=== PATIENT | male | born 2000 | race Caucasian/White ===

== ENCOUNTER 2022-07-10 08:00 | Outpatient (RCR) | payer BC, SELFPAY ==
--- NOTE | 2022-07-10 09:00 | BH.SGPN.GN ---
Behaviors/Verbalizations/Mental Status: [] Eye contact is good. Motor activity is appropriate. Appearance is casual. Speech is Appropriate. Mood is anxious. Affect is congruent. Thoughts are linear and logical. No evidence of psychosis. Reviewed daily check in sheet and no reports of suicidal ideations or intent. Client Response/Progress/Benefit: [] Pt participated when prompted. Attentive. Shared with the group that today was his first day in IOP and that he is here to work on his depression. Group provided support and offered feedback/advice for his first day in IOP level of care which was beneficial. Limited progress as this was pt's first day in IOP. Will continue in IOP to maintain safety, increase healthy coping, and improve functioning. Narrative Note: []
--- NOTE | 2022-07-10 10:10 | BH.SGPN.GN ---
Behaviors/Verbalizations/Mental Status: []Client alert and oriented, casually dressed and groomed. Eye contact good. Motor activity appropriate. Speech within normal limits. Affect congruent, mood content and anxious. Thoughts linear, logical, no signs of hallucinations or delusions Client Response/Progress/Benefit: []Client responded well to session AEB providing input when prompted, taking notes, and listening attentively to others. Client was engaged throughout group discussion defining fixed mindset and what it can look like. Group identified several aspects of fixed mindset which included; negative outlook, difficulties taking criticism, absolute thinking, and unrealistic expectations of self/others. Group discussed how fixed mindset affects mental health and why we use fixed thoughts. Client participated in experiential activity encouraging clients to find solutions to a seemingly impossible task. Client identified personal fixed thoughts in session which included ?I?m broken?, ?I won?t graduate?, and ?Setbacks are failures?. Client gained insight to how these fixed thoughts impact motivation, self-talk, and keep client stuck in unhealthy cycles. Client appeared to benefit from increased knowledge of fixed mindset and self-awareness of personal fixed thoughts. Will continue IOP treatment to reduce depression, increase healthy thought patterns, and to prevent decompensation. Narrative Note: []
--- NOTE | 2022-07-10 11:10 | BH.SGPN.GN ---
Behaviors/Verbalizations/Mental Status: []Pt alert and oriented, neatly dressed and groomed. Eye contact good. Motor activity appropriate. Speech within normal limits. Affect congruent, mood anxious. Thoughts linear, logical, no signs of hallucinations or delusions. Client Response/Progress/Benefit: []Pt engaged during activity and discussion AEB providing some input, connecting with peers, as well as taking notes throughout. Pt did well to engage as group worked on identifying characteristics and benefits of adopting a growth mindset. Worked with fellow participants in reframing the example fixed thoughts into growth mindset thoughts. Reframed personal fixed thought of ?I won?t graduate and setbacks are failures? with growth mindset thought of ?I am hard working and resilient.? Benefitted from discussing benefits of growth mindset and brainstorming strategies for prompting growth-mindset. Pt selected ?living in the hearn? as the coping skill pt wants to work on this week. First day of IOP tx. Pt will continue IOP tx to prevent decompensation, improve daily functioning, and maintain safety. ? Narrative Note: []
--- NOTE | 2022-07-10 14:37 | BH.COMM ---
Communication Note - Communication with Client Communication Note: Met with pt to complete initial paperwork. No significant changes since pre-admission screening. Completed [employer] Suicide Screening. High risk due to having suicidal ideations with a plan to overdose on sleeping pills this past Thursday. Pt bought the medications and had the intention to overdose, but pt shared he did not follow through with the plan because his friends called and pt spent time with them instead. Pt shared this improved his mood and reduced SI. Pt denies any active SI, plan, or intent as of today. Pt shared his family is aware and they are very close with pt. Pt's family is removing the weapons from the house. No history of previous attempts or self-harm. Contracts for safety. Consulted with Dr. Santana with plan to admit to IOP level of care with dx of MDD, recurrent, severe without psychosis F 33.2
--- NOTE | 2022-07-14 10:10 | BH.SGPN.GN ---
Behaviors/Verbalizations/Mental Status: []Pt alert and oriented, neatly dressed and groomed. Eye contact good. Motor activity appropriate. Speech within normal limits. Affect congruent, mood euthymic. Thoughts linear, logical, no signs of hallucinations or delusions. Client Response/Progress/Benefit: []Pt was an engaged participant AEB providing input, listening to others, and taking notes. Participated in interactive group discussion on internal and external barriers to mental health progress. Pt described current reality using a hiking metaphor. Pt shared feeling like he is ?in a valley between two mountains and I can see my supports, but can?t reach them.? Reported desired reality is still being on the hike, but ?I found a ladder and I can see past the darkness.? Pt?s strengths in current reality included close relationship with family and communication. Pt shared personal barriers to desired realty include: isolation, difficulty asking for help, and negative thinking. Benefited from increased awareness of current barriers to progress as well as current/desired realities. Pt to continue IOP to prevent decompensation, reduce SI, and gain healthy coping skills. ?? Narrative Note: []
--- NOTE | 2022-07-14 11:10 | BH.SGPN.GN ---
Behaviors/Verbalizations/Mental Status: []Pt alert and oriented, casually dressed and groomed. Eye contact fair. Motor activity appropriate. Speech within normal limits. Affect congruent, mood anxious. Thoughts linear, logical, no signs of hallucinations or delusions. Client Response/Progress/Benefit: []Pt engaged during activity, encouraging peers and contributed as group brainstormed ideas on how to cope with internal barriers that keep pts stuck from moving towards goals. Able to identify barriers to desired reality. Identified barriers to current reality to include: isolation, negative self-talk, and not asking for help. Pt wants to work on overcoming the barrier of isolation by scheduling hangouts with his family/friends. Benefited from group by identifying obstacles and solutions to desired reality.? Pt will continue IOP tx to improve daily functioning, increase healthy coping skills, and prevent decompensation.
--- NOTE | 2022-07-14 14:12 | BH.MTP_ITS ---
Master Treatment Plan - Patient Information Program Physician:: Dr. Rodriguez Primary Therapist:: Margarita Desouza, [facility] - Psychiatric Diagnoses Psychiatric Diagnoses:: Adjustment disorder with mixed anxiety and depressed mood Diagnosis Code(s):: F43.23 - Estimated LOS Estimated LOS (in weeks):: 6 Problem/Goal #1 - Problem/Goal #1 Stated Goal:: Client will decrease depressive symptoms, anhedonia, and suicidal thoughts. Description of Barriers: Potential barriers to treatment include: negative thi nking, mental health stigma, anxious thoughts, and not interested in taking any medications due to worry about future career options. Functional Impact: The patient is a 22-year-old single male who referred himself to the [facility] behavioral health IOP program for worsening depression since December 2021. The patient states that he may have started becoming mildly depressed during the COVID pandemic. 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 The patient's condition worsens and he stopped going to classes and to work in May secondary to feeling lonely and isolated. He dropped out of flight school now as he was behind but only has 3 classes to complete his training. The patient has had a few panic attacks but the last panic attack was on July 02, 2022. On June 28 the patient bought sleeping pills with the intent to kill himself by ingesting pills and sitting in his garage with car on. Later that night he went out with his friends and realized he did not want to commit suicide. Since moving home his depression and anxiety symptoms have improved. - Objectives Objective #1 Stated Objective: Client will learn and utilize 2-3 healthy coping strategies to manage depressive symptoms as shown by reduced DSM-5 cross-cutting symptom measure score. Interventions: Therapist will utilize CBT techniques to assist client with understanding the connection between thoughts, feelings and behaviors. Education will be provided on behavioral activation. Therapist will assist client in learning internal coping strategies to manage depressive symptoms, along with helping client identify triggers. Discharge Criteria: Client will have achieved this goal when reports consistent use of at least 2 healthy coping strategies and DSM 5 cross cutting measure shows decrease in depression at discharge. Target Date: 08/21/22 Review Date: 08/07/22 Objective #2 Stated Objective: Client will identify and replace 2-3 negative thinking patterns that reinforce depressive symptoms. Interventions: Group and individual therapy will assist client in developing an awareness of the cognitive messages that reinforce depressive thinking.? Group and individual therapy will also assist client in challenging negative thinking patterns.? Discharge Criteria: Client will have achieved this goal when can identify at least 2 negative thinking patterns and replace negative thinking with more positive, affirmative messages. Target Date: 08/21/22 Review Date: 08/07/22 Problem/Goal #2 - Problem/Goal #2 Stated Goal:: Client will increase emotional regulation and reduce intensity and duration of anxiety symptoms. Description of Barriers: Potential barriers to treatment include: negative thinking, mental health stigma, anxious thoughts, and not interested in taking any medications due to worry about future career options. Functional Impact: The patient is a 22-year-old single male who referred himself to the [facility] behavioral health IOP program for worsening depression since December 2021. The patient states that he may have started becoming mildly depressed during the COVID pandemic. 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 The patient's condition worsens and he stopped going to classes and to work in May secondary to feeling lonely and isolated. He dropped out of flight school now as he was behind but only has 3 classes to complete his training. The patient has had a few panic attacks but the last panic attack was on July 02, 2022. On June 28 the patient bought sleeping pills with the intent to kill himself by ingesting pills and sitting in his garage with car on. Later that night he went out with his friends and realized he did not want to commit suicide. Since moving home his depression and anxiety symptoms have improved. - Objectives Objective #1 Stated Objective: Client will learn and implement 2-3 calming skills to reduce overall anxiety and manage anxiety symptoms. Interventions: Therapist and group sessions will help client identify physiological warning signs of anxiety, increase awareness of thoughts that increase anxiety, and identify behaviors that reinforce anxious symptoms. Group and individual counseling will teach client calming skills to help manage anxious symptoms. Discharge Criteria: Client will have achieved this goal when can verbalize at l east 2 calming skills and reports skills successfully help reduce anxious symptoms. Target Date: 08/21/22 Review Date: 08/07/22 Objective #2 Stated Objective: Pt will decrease anxious symptoms AEB pt?s score on the DSM 5 cross-cutting measure improve pt?s daily functioning. Interventions: Through groups and individual therapy, pt will be provided education about anxiety?s impact on body and common physiological reaction to anxiety. Therapist will teach pt appropriate breathing techniques and build healthy coping skills to manage daily anxieties. Discharge Criteria: Pt will have met this goal when pt?s score on the DSM 5 cross cutting measure for anxiety has been decreased and per pt?s report daily functioning has improved. Target Date: 08/21/22 Review Date: 08/07/22
--- NOTE | 2022-07-14 14:28 | BH.PSA_ITS ---
Source of Information - Presenting Problems/Circumstances Problems, Referral Source, Mental Status, Client: The patient is a 22-year-old single male who referred himself to the [facility] behavioral health IOP program for worsening depression since December 2021. Patient had suicidal thoughts no June 28 with plan to take pills and turn on his car for carbon monoxide poisoning. Pt had opened up to his best friend about his suicidal thoughts and has moved back to his parents house from [place]. Pt's depressed and anxious symptoms led him to drop out of college classes and eventually withdraw from school. Past Psychiatric History - Treatment Hx Treatment History: No psych admits ever. No suicide attempts ever. He had 1 counseling session after his roommate in college by suicide several years ago in college. Patient has never taken any psychiatric medications. First hospitalization:: none Medication Trials:: No ECT Therapy:: No Age of first mental health symptoms: Reports some depressed symptoms in high school. Current providers for mental health treatment (counselor, psychiatrist, watch case polisher, etc.): No current providers besides [facility] IOP. Development & Family of Origin - Childhood Significant Childhood Events: Client describes positive upbringing with loving family. Client states family is extremely important to him and has fond memories of growing up. He denies any physical, verbal or sexual abuse growing up. - Family Who currently lives in your home?: Lives with his parents, sister, and grandmother. - Family History Family Hx of Psychiatric or AOD Problems: Paternal aunt has depression and anxiety. No other history in the family. No family hx of suicides. No drug or alcohol abuse in the family. Ethnicity - Culture Do you identify yourself with any particular cultural, ethnic background, or community?: No - Sexuality Sexual Orientation: Heterosexual Mental Status - Memory Recent Memory: Fair Remote Memory: Fair - Concentration Concentration: Fair - Eye Contact Eye Contact: Good - Speech Speech: Articulate - Thought Process Thought Process: Logical Insight: Fair Judgment: Fair Behavior: Calm - Orientation Orientation: Time, Person, Place, Situation - Appearance Appearance: Appropriate - Mood Mood: Anxious - Affect Affect: Alert, Appropriate/calm Suicide Assessment - Suicidal Ideation Have you ever felt like hurting yourself?: Yes Please explain:: On June 28 client had suicidal thoughts to kill self Were you using ETOH/drugs at the time?: No Suicidal Intentional Rating Scale (SIRS): Current suicidal thoughts/No plan/Contracts for safety Physician Notification: If Active suicidal thoughts/Will not contract for safety is checked, contact physician and document in the Physician Notification section below. Problem Checklist - Current Problem Areas Problem List: Depressed mood/sad, Anxiety, Additional psychosocial stressors Diagnoses - Diagnoses Diagnosis #1:: Adjustment disorder with mixed anxiety and depressed mood (F43.23) Interpretive Summary - Interpretive Summary Interpretive Summary: The patient is a 22-year-old single male who referred himself to the [facility] behavioral health IOP program for worsening depression since December 2021. The patient states that he may have started becoming mildly depressed during the COVID pandemic. 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 The patient's condition worsens and he stopped going to classes and to work in May secondary to feeling lonely and isolated. He dropped out of flight school now as he was behind but only has 3 classes to complete his training. The patient has had a few panic attacks but the last panic attack was on July 02, 2022. On June 28 the patient bought sleeping pills with the intent to kill himself by ingesting pills and sitting in his garage with car on. Later that night he went out with his friends and realized he did not want to commit suicide. On July 05 then he told his friend in [place] how he was feeling in the and then went home to [facility] on Thursday and told the rest of his family. They were very supportive of him and he is currently living at [place] with his parents and his grandmother. He sees his cousins frequently to and the support has helped him improve. His energy level is better now and he is exercising by lifting weights and hopes to start aerobic activity soon. The only panic attacks he had was when his parents were called and he was unable to tell them that he was not going to classes. Since moving home his depression and anxiety symptoms have improved. Treatment Plan Recommendations - Recommendations Guidelines: Special needs identified to be included in the development of an individualized treatment plan regarding past psychiatric history and treatment, developmental events, family relationships/events/culture, past and/or current educational, occupational, social, and residential experience, and legal status. Recommendations:: The patient will start the IOP program in behavioral health at [facility] as the structure, support, education and group therapy will hopefully prevent worsening of the patient's symptoms.
--- NOTE | 2022-07-14 14:35 | BH.MDN_ITS ---
Multi-Disciplinary Note - Note 45-min Individual Time Started:: 09:00 Date: 07/14/22 Purpose of session/treatment goals addressed:: Purpose of session was to assess client's current symptoms, stressors, functioning, and gather additional background information. Additional focus was establishing treatment goals for IOP. Eye Contact:: Good Motor Activity:: Appropriate Appearance:: Casual Speech:: Appropriate Mood:: Anxious Affect:: Congruent Thoughts:: Linear, Logical, No evidence of hallucinations/delusions noted Staff Interventions:: psychoeducation on: - cognitive triangle and behavior activation, CBT techniques, rapport building, strengths perspective, treatment planning, goal setting - set short term goal for the week Client Response:: Client reported he moved to [place] about 5 years ago to go to [employer] school through [employer]. Client reported he lives on campus until [facility] then moved in with his sister. Client stated he started to struggle within the last year once his friends began to graduate from [employer] and he had additional time left. Client reported he began feeling more isolated and lonelier due to having limited support in the area. Client reported his depressed symptoms worsened when his sister moved from [place] to [place] in December 2021. Client stated at this point he only had 1 best friend left in the [place] area since the other friends moved since graduation. Client reported he started to isolate and feel more depressed throughout those months. Client shared his symptoms worsened the last 2 months with having significant depressed thought patterns, low motivation, difficulty concentrating, loss of interest in things he used to like to do, decreased socialization, and difficulty sleeping. Client reported he stopped going to his classes and worked for about a month. Client shared he was not communicating to supports that he was struggling with his mental health which increased his anxiety significantly. Client stated he is very close to his family and so every time he talked to his family, he felt like he was hiding it important part about his life. They client stated about 2 weeks ago he bought some sleeping pills with plan and intent to take the second pills while in the garage with his car running to kill himself. Client reported he did not follow through with that plan because on the day he was going to do it his best friend reached out to see if they wanted to hang out. Client stated within a few days he did open up to his best friend about his increased depression and suicidal thoughts. Client stated at this time he had already dropped out of flight class but still did not share this with his family. Client reported last weekend he informed his parents about his mental health and suicidal thoughts and decided to drop out of school and moved back home. Client stated since being home for the last week and a half his mood has improved and he has not had any suicidal thoughts. Client reported being surrounded by his family and friends has been extremely helpful. Client shared he has had no previous therapy but did struggle with mental health while in high school due to some relationships and sport issues. Client stated he did have passive thoughts of while in high school but stated this most recent bout of depression is the worst he has ever had. 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 Client stated in the last 2 months he was feeling extremely hopeless and did not think that he can get through it. Client seemed to connect with psychoeducation about cognitive triangle and behavioral activation. Client cannot tell in the last few months is thought patterns and behavior was reinforced in depressed feelings and feelings of hopelessness. Client reported while in IOP he would like to learn how to better navigate depressed symptoms to prevent himself from getting to suicidal thoughts. Client stated he does like to learn skills to manage anxiety. Client worked with therapist to identify activities that he can engage in that have improved his mood and activities that can negatively impact his mood. Client reported his goal for the week is to join a local gym and work at least 1 time. Client reported working out has been a helpful coping skill to manage his mood. Risks/Concerns:: Client currently denies suicidal thoughts, plan or intention to date. Future focused. Progress Toward Goals/Plan:: Progress noted with client reporting improved mood since moving back in with his family about 1 and 1/2 weeks ago. Client was feeling extremely isolated and lonely when living in a condo in [place] by himself. Client reports his relationships with family is very important so has found it helpful to be back in a loving and supportive area. Client continues to report occasional negative thought patterns, down mood, and anxious thoughts in the last week. Plan is for client to continue IOP to increase healthy coping skills, improve distress tolerance, and prevent decompensation. Time Stopped:: 09:50
--- NOTE | 2022-07-16 09:35 | BH.NA_ITS ---
Physical Data - Vital Signs Pulse Rate: 68 Blood Pressure: 137/74 - Height/Weight Height: 1.85 m Weight:: 79.379 kg Weight in Pounds: 175.0 lbs Nutritional History - Appetite Nutritional Instructions:: If client shows signs of a swallowing problem, weight change of 10 pounds or more in the last month, or is on a diabetic diet, the physician will review and request a dietitian consult, as appropriate. All unintentional weight loss will be referred to the physician for decision on need for dietitian consult. Describe your appetite:: Good - Denies change in appetite or recent weight change. Functional Assessment - Activities Motor Activity:: Functional Sensory/Communication Assess - Vision Problems Do you have any vision problems?: None - Communication Problems Do you have difficulty understanding what people are saying?: No Medical Problems/History - Pain Assessment Do you have acute or chronic pain?: No Surgical History - Surgical History Have you had any surgeries? If so, list type and date:: Yes - wisdom teeth removal Substance Abuse - Substance Abuse Please describe substance abuse in the last 30 days:: Client reports some social alcohol use. Client denies tobacco or substance use. Client denies regular caffeine use. Mental Status Summary - Mental Status Significant Findings/Observations on Appearance and Mood:: Client is alert and oriented x 4. Client is casually groomed with good hygiene. Client is cooperative with assessment. Client makes good eye contact. Client's voice has normal rate and volume. Client has appropriate affect. Client makes logical associations. Client has normal processing. Client denies delusions/hallucinations. Client denies current SI or plan/intent. Suicide Assessment - Suicidal Ideation Are you currently or have you been suicidal in the past?: Yes - denies current SI Suicidal Intentional Rating Scale (SIRS): Suicidal thoughts (past) Physician Notification: If Active suicidal thoughts/Will not contract for safety is checked, contact physician and document in the Physician Notification section below. Assault History/Potential Past Psychiatric History - MH Treatment Hx Past Psychiatric Medications:: None. Age of first mental health symptoms: Client states he had some situational depression in high school, but recently started feeling depressed in the last 6 months. Client has not been on medication for mental health and has never had therapy before. Describe (age, circumstance, etc) any past hospitalizations: None, but client did have a suicidal plan in early June of this year and bought sleeping pills and was planning to overdose in his car in the garage with it running. Client talked with friends/family and did not attempt his plan. Fall Risk Assessment - Age Age: Less than 60 - Mental Status Mental Status: Willing & able to ask for assistance when needed - Physical Status Physical Status: No problems - Impairments Impairments: None - Elimination Elimination: Continent AND independent - Gait or Balance Gait or Balance: Walks independently - Hx of Falls History of falls in the past 6 months: No known history - Medications/Substances Medications/substances used within the past 24 hours or ordered to administer: None of the medications/substances list above - Total Score Total Points:: 0 RN Summary of Impressions - Impressions Recommendations: Include psychiatric and medical issues, treatment planning recommendations, and discharge planning needs. Impressions: Psychiatric Issues: 1. Adjustment disorder with mixed anxiety and depressed mood (F43.23). 2. Primary support and school issues - Level of Care How do the client's current symptoms and functional deficits support need for this level of care?: Client was self-referred to IOP after worsening depression since December 2021. His roommate, his sister, moved out of their apartment and the client felt lonely, and client also felt like he wasn't progressing in life like he should. 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 Client had a plan in early June to overdose on sleeping pills and sit in his running car in the garage, but he talked to friends/family and did not carry out plan. Client moved home from [place] this past weekend and he states his family is very supportive since he has finally opened up to them about his struggles with depression symptoms. Client states he did have a panic attack about 2 weeks ago. Client does endorse some crying episodes in the last few weeks. Client denies SI since his suicidal plan earlier this month. IOP will promote gains and prevent further decompensation while providing social support and skills training.
[2022-07-16 09:57] VITALS: BP 137/74; PULSE 68
--- NOTE | 2022-07-16 10:15 | BH.SGPN.GN ---
Behaviors/Verbalizations/Mental Status: [] Eye contact is good. Motor activity is appropriate. Appearance is casual. Speech is Appropriate. Mood is anxious. Affect is congruent. Thoughts are linear and logical. No evidence of psychosis. Client Response/Progress/Benefit: [] Limited participation. This group was very heavy on psychoeducation and pt was attentive AEB by note-taking, providing input when appropriate, and asking questions. Attentive during interactive discussion in which peers attempted to define and give examples of automatic negative thoughts and cognitive distortions. Therapist presented and reviewed ten common cognitive distortions (All or Nothing thinking, mental filter, jumping to conclusions, emotional reasoning, labeling, overgeneralization, disqualifying the positives, catastrophizing, shoulds, and personalization). Benefited from increased understanding of cognitive distortions and how they impact automatic negative thoughts. Will continue in IOP to maintain safety, increase healthy coping, and improve functioing. Narrative Note: []
--- NOTE | 2022-07-16 11:10 | BH.SGPN.GN ---
Behaviors/Verbalizations/Mental Status: []Eye contact is fair to good. Motor activity is appropriate. Appearance is casual. Speech is WNL. Mood is anxious. Affect is congruent. Thoughts are linear and logical. No evidence of psychosis. Client Response/Progress/Benefit: []Pt engaged participant AEB providing input during small group discussion and engaging in activity. Activity involved working with peers to answer questions related to psychoeducation on cognitive distortions and practicing reframing distorted thoughts. Pt collaborated with the group to determine the answers. Identified cognitive distortion struggles with the most as disqualifying the positives. Stated he has a difficult time with accepting compliments and recognizing his daily wins. Benefited from rehearsing ways to challenge/reframe cognitive distortions and by gaining increased insight into examples/definitions of 10 most common cognitive distortions. Will continue in IOP to increase healthy coping skills, increase confidence, and prevent decompensation.
--- NOTE | 2022-07-16 12:58 | BH.PSY.EVA_ITS ---
Psychiatric Evaluation Initial Evaluation Initial Evaluation: History of Present Illness: [] The patient is a 22-year-old single male who referred himself to the [facility] behavioral health IOP program for worsening depression since December 2021. The patient has no prior history of psychiatric treatment but was depressed once in high school. The patient states that he may have started becoming mildly depressed during the COVID pandemic. 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 He was very close to his sister and began feeling lonely and his depression worsened. He is very family oriented and visited his family in [place] on weekends but remains somewhat lonely. For primary support he has family, his sister and his best friend and his best friend's aleksandra who lives in [place]. The patient's condition worsens and he stopped going to classes and to work in May secondary to feeling lonely and isolated. He dropped out of flight school now as he was behind but only has 3 classes to complete his training. The patient has had a few panic attacks but the last panic attack was on July 02, 2022. 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 He admits to passive thoughts of but none since July 04, 2022. He denies any suicidal ideation since July 04, 2022. On June 28 the patient but sleeping pills with the intent to kill himself (melatonin) by ingesting carbon monoxide in his car in his garage. Later that night he went out with his friends and realized he did not want to commit suicide. On July 05 then he told his friend in [place] how he was feeling in the and then went home to [place] on Thursday and told the rest of his family. They were very supportive of him and he is currently living at home [place] with his parents and his grandmother. He sees his cousins frequently to and the support has helped him improve. His energy level is better now and he is exercising by lifting weights and hopes to start aerobic activity soon. The only panic attacks he had was when his parents were called and he was unable to tell them that he was not going to classes. The patient states that he had a roommate commit suicide in his sophomore year of college by jumping off a parking garage and this was upsetting to the patient. He saw a counselor after this but states that he felt he was able to handle it. He has mild anhedonia and some initial insomnia and also wakes up during the night but gets back to sl eep and gets about 7 hours of sleep at night now. He denies any PTSD from his roommate suicide or anything else. He denies hopelessness now since he is home with his family. He denies thoughts of self-harm, passive thoughts of currently, suicidal ideation, homicidal ideation, caffeine use, eating disorder, history of self-harm, seizure or head trauma. He also denies hallucinations or delusions. Current Psychiatric Medications: [] None. Past Psychiatric History: [] No psych admits ever. No suicide attempts ever. He had 1 counseling session after fight after his roommate committed suicide several years ago in college. Patient has never taken any psychiatric medications. He was first depressed in high school but this resolved without medication. Substance Use History: [] Patient denies cigarettes, vaping or any illicit drug use. He used to drink occasional alcohol 1 socializing but has not drank any alcohol since his depression symptoms got worse several months ago. He has also not attended the flight classes when his depression worsened. Allergies: [] No known allergies Medications: [] None Past Medical History: [] [place] teeth in 2016. No other illnesses or surgeries. Family Psychiatric History: [] Father is 56 years old mother is 52 years old. Paternal aunt has depression and anxiety. No other history in the family. No completed suicides. No drug or alcohol abuse in the family. Personal/Social History: [] Patient was born and raised in [place] and describes his childhood as very good. He grew up in a big, loving Yazidi family. He denies any physical, verbal or sexual abuse growing up. He was working at [employer] while in college but quit that when he came home to [place] several weeks ago. He had a high school girlfriend that was on and off for 3 years but no other serious relationships. No children. Graduated high school and was a student at [employer] with only 3 classes left when he dropped out a few weeks ago. He plans to possibly return when he feels better. He is very close to his family and his cousins. Legal History: [] No arrests. Has new autos delivery driver's license. No DUIs. Review of Systems: [] Review of systems negative except as noted in present illness. Vital Signs: [] Vital signs and exam are reviewed in the records and in the nurses notes and updated and the patient is deemed medically able to participate in the IOP program. Mental Status Examination: [] Patient is a 22-year-old male who appears normal for stated age and is casually dressed and groomed with good hygiene. He has ashes on his forehead as he is Yazidi and this is Giovanni Thursday. He is ambulatory with a normal gait and has no psychomotor agitation or retardation. He is cooperative and pleasant during the interview. Eye contact is good. Mood is depressed. Affect is constricted. Speech is normal rate and rhythm and fluent with no pressure. Thought process is organized and goal-directed. Thought content: The patient which is wishes to get counseling to help with his depression and anxiety. There is no evidence of passive thoughts of , suicidal ideation, homicidal ideation, hallucinations, delusions or plan for suicide. Reality testing is intact. Intelligence is above average. Impulsivity is low. Judgment is intact. Insight is good. Diagnoses: [] 1. Adjustment disorder with mixed anxiety and depressed mood (F43.23) 2. Primary support and school issues Plan: [] The patient will start the IOP program in behavioral health at [facility] as the structure, support, education and group therapy will hopefully prevent worsening of the patient's symptoms. He felt safe during the interview and if it anytime he does not feel safe he will let us know or go to the emergency room. The patient is offered the option of an antianxiety and antidepressant agent but he refuses medication at this time. He wishes to try therapy and continue exercising and adds and plans to add aerobic exercise soon as when he was running in high school he felt that this was beneficial. Discussion was had about correcting cognitive distortions and negative thinking when 1 is depressed. Counseling is recommended for this. I will see the patient in follow-up while he is in the IOP program.
--- NOTE | 2022-07-16 13:10 | BH.DR.ITP ---
Initial Treatment Plan Patient Information Visit Information: ADMISSION DATE: EXPECTED LOS: 4-6 weeks Problems/Symptoms Problem #1:: Depression Symptom:: Sadness, biological disruption of sleep, recent passive thoughts of and suicidal ideation, fatigue, decreased concentration, low energy, anhedonia Problem #2:: Anxiety Symptom:: Worry, rumination, panic attack
--- NOTE | 2022-07-17 09:05 | BH.SGPN.GN ---
Behaviors/Verbalizations/Mental Status: []Eye contact good, casually dressed, motor activity appropriate, speech normal rate and tone, mood euthymic and anxious, congruent affect, thoughts linear and intact, no evidence of delusions or hallucinations. Reviewed pt's symptom tracker, pt denies suicidal ideation, plan, or intent as of this date. Future oriented. Client Response/Progress/Benefit: []Pt responded well to session, attentive and willing to process with group. 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 Pt did well to identify wins, which included taking time to prioritize self-care and get back into regularly exercising. Discussed that doing so has helped with improving his overall mood as well. 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 Identified that was anxiety provoking but ultimately an empowering and beneficial experience as her boss was receptive and open to scheduling a time to meet. Progress noted in increased use of behavior activation skills and thought challenging. Recommended continued IOP tx to continue to improve consistent use of healthy skills and self-care, continue to gain insight into his mental health, as well as prevent decompensation. Narrative Note: []
--- NOTE | 2022-07-17 10:10 | BH.SGPN.GN ---
Behaviors/Verbalizations/Mental Status: [] Eye contact is good. Motor activity is appropriate. Appearance is casual. Speech is Appropriate. Mood is anxious. Affect is congruent. Thoughts are linear and logical. No evidence of psychosis. Client Response/Progress/Benefit: [] Pt was an active participant in group discussion and experiential activity. Attentive during psychoeducation on difference between internal and external coping skills. Therapist discussed possible causes to developing and maintain unhealthy coping skills which can impact mental health. Pt participated in interactive discussion identifying common unhealthy which included; overworking, self-harming, substance use, over-sleeping, over-eating, excessive exercise, social media scrolling, isolation, etc. Able to make connections between experiential activity (folder towers) and importance of having a solid base of internal and external coping skills. Benefited from increased awareness of internal and external coping skills and identifying unhealthy coping skills. Will continue in IOP to maintain safety, increase healthy coping, and improve functioning. Narrative Note: []
--- NOTE | 2022-07-17 11:15 | BH.SGPN.GN ---
Behaviors/Verbalizations/Mental Status: []Pt alert and oriented, neatly dressed and groomed. Eye contact good. Motor activity appropriate. Speech within normal limits. Affect congruent, mood euthymic. Thoughts linear, logical, no signs of hallucinations or delusions. Client Response/Progress/Benefit: []Pt responded well to session, taking notes and contributing. Group discussed the different categories of coping skills which included distraction, emotional release, grounding, self-love, and thought challenging.? Pt participated in creating a coping skills ?menu? from the five categories of coping skills. Pt's coping skill menu included: star-gazing, communicating needs with family and friends, exercising, and paying attention to his distorted thought patterns. Pt reported some of these skills are new and others are skills pt wants to use more often. Appeared to benefit from increasing repertoire of healthy coping skills. Will continue tx to gain healthy coping skills, improve daily functioning, and reduce negative self-talk. ? Narrative Note: []
--- NOTE | 2022-07-21 09:05 | BH.SGPN.GN ---
Behaviors/Verbalizations/Mental Status: [] Eye contact is good. Motor activity is appropriate. Appearance is casual. Speech is Appropriate. Mood is euthymic. Affect is full. Thoughts are linear and logical. No evidence of psychosis. Reviewed daily check in sheet and no reports of suicidal ideations or intent. Client Response/Progress/Benefit: [] Pt participated at times during the group session. Attentive. Mental health win was celebrating his b-day with her family/friends. He is also continuing to follow-through with consistent exercise which he stopped during her depressive episode for several months. He shared that benefits that exercises does for his physical and mental health. He has plans to address his upcoming schooling and career challenges which are a stressor for him. Benefited from group support, encouragement, and feedback. Will continue in IOP to maintain gains and increase healthy coping. Narrative Note: []
--- NOTE | 2022-07-21 10:15 | BH.SGPN.GN ---
Behaviors/Verbalizations/Mental Status: []Client alert and oriented, casually dressed and groomed. Eye contact good. Motor activity appropriate. Speech within normal limits. Affect congruent, mood euthymic and anxious. Thoughts linear, logical, no signs of hallucinations or delusions. Client Response/Progress/Benefit: []Client responded well to session AEB sharing and listening attentively to others. Client participated in group discussion defining anxiety and common characteristics. Group discussed the impacts of anxiety, its benefits, as well as when it becomes unhealthy. Clinician provided psychoeducation on anxiety diagnoses and the anxiety triangle of physical symptoms, safety behaviors, and common anxious thoughts. Client identified her own physical sx to include short quick breaths and tensing up; and safety behaviors as avoidance and over preparing, and lashing out at others. Client appeared to benefit from increased knowledge of anxiety diagnoses and causes, as well as improved self-awareness of anxiety symptoms. Will continue IOP treatment to increase consistency of healthy coping skills, maintain mood stability, and prevent decompensation. Narrative Note: []
--- NOTE | 2022-07-21 11:10 | BH.SGPN.GN ---
Behaviors/Verbalizations/Mental Status: []Pt alert and oriented, neatly dressed and groomed. Eye contact good. Motor activity appropriate. Speech within normal limits. Affect congruent, mood euthymic. Thoughts linear, logical, no signs of hallucinations or delusions. Client Response/Progress/Benefit: []Pt was an active participant in group discussion AEB? providing contributions throughout group and listening attentively to others. Pt able to connect how current safety behaviors are reinforcing anxiety. Attentive during psychoeducation on anxiety management skills. The group practiced gentle stretching and thought challenging during session. Engaged and attentive during group brainstorm of healthy anxiety reduction skills. Appeared to benefit from practicing in the moment coping skills and increasing repertoire of anxiety management skills. Pt selected wanting to work on controlled breathing to be more mindful and manage anxiety. Pt will continue IOP tx to further improve mood stability, increase self-confidence, and gain healthy coping skills. ?? Narrative Note: []
== END 2022-07-22 23:59 ==
LOC: BHIOP 08:00
PROVIDERS: Referring Provider Psychiatry & Neurology Psychiatry; Visit Provider Psychiatry & Neurology Psychiatry
DX: F43.23 Adjustment disorder with mixed anxiety and depressed mood (principal)
CPT/HCPCS: S9480; 90834; 90853

== ENCOUNTER 2022-07-23 06:49 | Outpatient (RCR) | payer BC, SELFPAY ==
[2022-07-23 00:36] VITALS: BP 137/74; PULSE 68
--- NOTE | 2022-07-23 09:05 | BH.SGPN.GN ---
Behaviors/Verbalizations/Mental Status: []Pt alert and oriented, neatly dressed and groomed. Eye contact good. Motor activity appropriate. Speech within normal limits. Affect congruent, mood euthymic. Thoughts linear, logical, no signs of hallucinations or delusions. Reviewed pt?s symptom tracker, no risk for suicidal ideation, plan, or intent as of 07/23/22 Client Response/Progress/Benefit: []Pt responded well to session, attentive and engaged. Pt reports feeling reassured this morning. Pt shared he had a good visit with his cousin recently and he got to meet with his sister's boss which went well. 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 Pt appeared to benefit from reflecting on his application of coping skills. Pt will continue IOP tx to promote mood stability, reduce negative thinking, and improve self-confidence. Narrative Note: []
--- NOTE | 2022-07-23 10:10 | BH.SGPN.GN ---
Behaviors/Verbalizations/Mental Status: [] Eye contact is fair. Motor activity is appropriate. Appearance is casual. Speech is Appropriate. Mood is euthymic. Affect is congruent. Thoughts are linear and logical. No evidence of psychosis or hallucinations. Client Response/Progress/Benefit: [] Pt was an active participant in group discussion and activity. Attentive during psychoeducation. Along with peers was able to identify barriers to taking action. Identified several symptoms and stressors that she feels are holding him back from progress such as self-doubt, shutting down, fear of failure, isolation, and not asking for help. Client shared these things have impacted ability to communicate to his supports and get the help he needed. Benefited from increased self-awareness of obstacles. Will continue in IOP to continue use of healthy coping, increase confidence, and prevent decompensation.
--- NOTE | 2022-07-23 11:07 | BH.SGPN.GN ---
Behaviors/Verbalizations/Mental Status: [] Client alert and oriented, casually dressed and groomed. Eye contact good. Motor activity appropriate. Speech within normal limits. Affect congruent, mood anxious and euthymic. Thoughts linear, logical, no signs of hallucinations or delusions. Client Response/Progress/Benefit: []Client responded well to session, taking notes and participating in worksheet discussion. Client connected with the zones of action/change and that making sustainable change comes from stepping out of one?s comfort zone into the learning zone. Client set a goal to gain control over self-doubt/fear of failure. 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 Client identified planning specific areas to study, reviewing, and giving himself credit for progress he is making as supports needed to help her accomplish goal. Appeared to benefit from identifying a small goal to benefit mental health. Will continue IOP tx to increase healthy coping, promote mood stability, and prevent decompensation. Narrative Note: []
--- NOTE | 2022-07-23 14:15 | BH.MDN_ITS ---
Multi-Disciplinary Note - Note 30-min Individual Time Started:: 11:00 Date: 07/23/22 Purpose of session/treatment goals addressed:: Purpose of session was to address goals 1 and 2 from [facility]. Eye Contact:: Fair Motor Activity:: Appropriate Appearance:: Casual Speech:: Appropriate Mood:: Euthymic Affect:: Full Thoughts:: Linear, Logical, No evidence of hallucinations/delusions noted Staff Interventions:: CBT techniques, mindfulness skills, rapport building, strengths perspective, goal setting, taught coping skills Client Response:: Client reported he had a great weekend because he spent a lot of time with family for his birthday celebration. Client stated he was able to enjoy himself and be present throughout the entire constitution party. Client stated he followed through with goal made last session of getting a gym membership. Client reported he has been to the gym every weekday since getting the membership. Client stated it has been helpful to get back into working out. 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 Client receptive to reviewing healthy coping skills like mindfulness, opposite action, and identifying daily positives. Client agreed it will be helpful to learn strategies and skills that he can start practicing now that will be helpful for him to combat depressive symptoms. Client noted significant mood improvement since being back home with family. Client stated he has decided where ever he decides to move he believes being close to family or his best friend will set him up for success. 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 Client stated by the end of IOP he would like to have at least started to practice flying. Client identified goal for the week is to practice new skills and continue going to the gym. Risks/Concerns:: Denies active suicidal ideation, plan or intention to date. future oriented. Progress Toward Goals/Plan:: Progress noted with client reporting improved mood, no suicidal thoughts, and decreased anxiety. Client followed through with goal of getting back to the gym in the last week. Client expresses anxiety when he thinks about going back to flying. Client is showing significant improvement in functioning and improved mental health since moving back in with his parents. Plan is client to continue IOP to prevent decompensation, continue use of healthy coping, and challenge distorted thoughts. Time Stopped:: 11:25
--- NOTE | 2022-07-24 09:00 | BH.SGPN.GN ---
Behaviors/Verbalizations/Mental Status: [] Eye contact is good. Motor activity is appropriate. Appearance is casual. Speech is Appropriate. Mood is euthymic. Affect is congruent. Thoughts are linear and logical. No evidence of psychosis. Reviewed daily check in sheet and no reports of suicidal ideations or intent. Client Response/Progress/Benefit: [] Pt was an active participant in group discussion. Attentive. Mental health positive as submitting a form yesterday to [facility] requesting a refund for certain classes from this semester. Reported this as a relief because he's been trying to work on this for the past few weeks and finally thinks he found the right form. 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 Client stated current stressor is straining his ab this morning during his workout. Expressed agitation that this strained ab could prevent him from doing many exercises. Group was supportive and provided encouragement which was beneficial. Will continue in IOP to continue use of healthy coping skills, challenge negative thoughts, and prevent decompensation.
--- NOTE | 2022-07-24 10:10 | BH.SGPN.GN ---
Behaviors/Verbalizations/Mental Status: [] Eye contact is good. Motor activity is appropriate. Appearance is casual. Speech is Appropriate. Mood is euthymic. Affect is full. Thoughts are linear and logical. No evidence of psychosis Client Response/Progress/Benefit: [] Pt was an active participant in group discussions. Attentive. Pt participated during interactive discussion on Problem-Solving. Along with peers provided insight on the definition of problem, the importance of problem-solving in one's mental wellness, and consequences of avoiding problems. Attentive AEB by note-taking and asking questions during education on Problem-Solving in the Moment protocol (Ask what the problem is, Brainstorm solutions, choose a solution, Do it, Evaluate). Active and engaged during experiential activity in which pt and peers practiced problem solving strategies. Benefited from increased insight on problem-solving strategies and the benefit of solid problem solving skills on one's mental health. Will continue in IOP to maintain safety, increase healthy coping, provide support, and to improve functioning to return to work. Narrative Note: []
--- NOTE | 2022-07-24 11:05 | BH.SGPN.GN ---
Behaviors/Verbalizations/Mental Status: []Pt alert and oriented, casual dress, hygiene tended to. Eye contact good. Motor activity WNL. Speech appropriate rate and tone. Affect congruent, mood anxious and euthymic.? Thoughts linear, logical, no signs of hallucinations or delusions. Client Response/Progress/Benefit: []Pt engaged in session as evidenced by pt listening to others and providing input throughout. Pt completed problem solving example with group and identified a goal they want to work on. Goal identified as: improving self-confidence levels. Pt?s barriers included: negative thinking/distortions, self-comparison, and fear of failure. 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 Pt seemed to benefit from learning about problem solving method and rehearsing problem-solving skills in the moment. Pt will continue IOP tx to promote mood stability, improve confidence in self and healthy communication with supports, and further reduce negative thinking. Narrative Note: []
--- NOTE | 2022-07-28 09:03 | BH.SGPN.GN ---
Behaviors/Verbalizations/Mental Status: []Eye contact is good. Motor activity is appropriate. Appearance is casual. Speech is Appropriate. Mood is euthymic, positive. Affect is congruent. Thoughts are linear and logical. No evidence of psychosis. Reviewed daily check in sheet and no reports of suicidal ideations or intent. Client Response/Progress/Benefit: []Pt was an active participant in group discussion. Attentive. client reported mental health positive as going to his cousin?s house to get a haircut. Shared this allowed him to complete a self-care task as well as engage with supports. 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 Noted this was a stressful but exciting and positive experience. Indicates feeling somewhat ?antsy? and on edge however as he has not been able to get as much sleep as he would like. Identified self-care and compassion as important skills to utilize throughout the remainder of the day to best maintain stability. Group was supportive and provided encouragement which was beneficial. Will continue in IOP to continue use of healthy coping, challenge distorted thoughts, and prevent decompensation. Narrative Note: []
--- NOTE | 2022-07-28 10:15 | BH.SGPN.GN ---
Behaviors/Verbalizations/Mental Status: []Pt alert and oriented, casually dressed and groomed. Eye contact good. Motor activity appropriate. Speech within normal limits. Affect congruent, mood euthymic. Thoughts linear, logical, no signs of hallucinations or delusions. Client Response/Progress/Benefit: []Pt participated at times during the group discussions. Participated during interactive discussion on defining conflict (internal/external) and possible benefits to conflict. Attentive during psychoeducation on conflict styles and engaged during small group activity in which peers identified the benefits and consequences to each conflict style. Pt identified that their primary conflict style is avoiding. Pt reported he can see avoiding conflict results in him isolating and discrediting himself. Benefited from increased awareness of the impact of conflict styles in mental health. Will continue in IOP to reinforce healthy coping skills, build confidence, and prevent decompensation.
--- NOTE | 2022-07-28 11:10 | BH.SGPN.GN ---
Behaviors/Verbalizations/Mental Status: []Pt alert and oriented, neatly dressed and groomed. Eye contact good. Motor activity appropriate. Speech within normal limits. Affect congruent, mood euthymic. Thoughts linear, logical, no signs of hallucinations or delusions. Client Response/Progress/Benefit: []Pt engaged in session AEB contributing to discussion and engaging in activity. Pt did well to review current conflict style and its impact on mental health. Attentive and taking notes during discussion on strategies for more effectively managing conflict in personal life.? Pt participated in activity and did well to talk through choices with peers. Pt given handout on fair fighting rules and identified that they want to work on taking time outs if things get too heated and communicating the need for a time out. Appeared to benefit from gaining strategies to help pt better manage conflict. Will continue IOP tx to promote mood stability, further increase anxiety management skills, and improve self-care. Narrative Note: []
--- NOTE | 2022-07-30 09:00 | BH.SGPN.GN ---
Behaviors/Verbalizations/Mental Status: [] Eye contact is good. Motor activity is appropriate. Appearance is casual. Speech is Appropriate. Mood is euthymic. Affect is full. Thoughts are linear and logical. No evidence of psychosis. Reviewed daily check in sheet and no reports of suicidal ideations or intent. Client Response/Progress/Benefit: [] Pt participated at times during the group discussion. Attentive. He discussed mental health wins which included continued daily exercise and contemplating a relationship. His check in was superficial. May struggle with being vulnerable infront of peers. Benefited from group support. Will continue in IOP to maintain safety and prevent decompensation. Narrative Note: []
--- NOTE | 2022-07-30 10:15 | BH.SGPN.GN ---
Behaviors/Verbalizations/Mental Status: [] Client alert and oriented, casually dressed and groomed. Eye contact good. Motor activity appropriate. Speech within normal limits. Affect congruent, mood euthymic. Thoughts linear, logical, no signs of hallucinations or delusions. Client Response/Progress/Benefit: Pt mostly passive participant AEB limited contributions during group discussion, however appeared to listen attentively to others. Active during group activity. Attentive during psychoeducation on fear and the impact that fear of failure can have. Pt and peers provided insight on thoughts that contribute to fear of failure such as: I'm not good enough, I won't succeed, I know I can't/couldn't do it, and I could have done that better. Pt and peers were able to identify the benefits to failure in an attempt to reframe. Group identified that failure can be a way to: learn what to do differently, lead to personal growth, increase self-compassion, and problem-solve. Pt benefited from psychoeducation on the impact of fear of failure and changing perspective on how to view setbacks. Pt will continue in IOP to continue use of healthy coping skills, maintain stability, and prevent decompensation.
--- NOTE | 2022-07-30 14:52 | BH.MDN_ITS ---
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 Client reported he believes has been helpful to be busy to keep his mind distracted and have purpose. Client stated being in IOP is helpful because he continues to gain knowledge about different skills and learn more about himself. Client receptive to information about diaphragmatic or belly breathing. Client rehearsed belly breathing in session so he knows how to utilize skill outside of treatment. 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 Client agreeable to practice belly breathing throughout the next week. Risks/Concerns:: Client denies suicidal ideation plan or intention to date. Future oriented. States ability to maintain safety. Progress Toward Goals/Plan:: Progress noted with client reporting decrease in depressive and anxious symptoms. Client reported continued mood since being back home and away from college. Client noted it has been helpful to have his support system near him. 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 Client has also been working out consistently throughout the week. Client to continue IOP to maintain gains, continue use of healthy skills, and prevent decompensation. Time Stopped:: 11:45
--- NOTE | 2022-07-30 15:10 | BH.TPR ---
Treatment Plan Review Date of Admission:: 07/10/22 Date of Treatment Plan Review:: 07/30/22 Admitting Diagnoses:: Adjustment disorder with mixed anxiety and depressed mood (F43.23) Current Diagnoses:: Adjustment disorder with mixed anxiety and depressed mood (F43.23) Patient's Response to Treatment:: Pt responded well to session AEB consistent attendance, attentive in group discussions, and following through with goals in individual therapy. Status of Current Problems and Symptoms: Client showing significant treatment progress AEB DSM 5 scores at review showing a 70% decrease in overall symptoms compared to scores at intake. Client still reporting mild anxiety. Client's mood has significantly improved since moving back home and being surrounded by support. 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 Problem #1 Problem Name:: Depression Status of Goals:: Obj 1 - goal met, ongoing work encouraged. Client able to identify several healthy coping skills like opposite action, working out, and communicating with supports. Per client's DSM 5 cross cutting measure at review client's depression has reduced by 100%. Obj 2 - goal met, ongoing work encouraged. Client able to identify negative thought patterns and improvement with challenging distorted thoughts. Team Recommendations:: Team recommends continued work on goals and objectives to allow time for consistent use of skills and ability to maintain treatment progress. Problem #2 Problem Name:: Anxiety Status of Goals:: obj 1 - goal met, ongoing work encouraged. Client reports use of belly breathing, grounding tools, and challenge anxious thoughts as calming skills to help manage anxious symptoms. Obj 2 - goal met, ongoing work encouraged. Per DSM 5 cross cutting measure at intake client's score show a 71% decrease in anxious symptoms. Team Recommendations:: Team recommends continued work on goals and objectives to allow time for consistent use of skills and ability to maintain treatment progress.
--- NOTE | 2022-07-31 09:05 | BH.SGPN.GN ---
Behaviors/Verbalizations/Mental Status: [] Eye contact is good. Motor activity is appropriate. Appearance is casual. Speech is Appropriate. Mood is depressed. Affect is flat. Thoughts are linear and logical. No evidence of psychosis. Reviewed daily check in sheet and pt reports 1/5 for suicidal thoughts and 0/5 for intent. Client Response/Progress/Benefit: [] Pt participated at times during the group discussion. Daily symptom tracker notes 2/5 for depression. Shared with the group that he has been questioning his yoel for awhile and has not spoken about this to his family. Shared how faith is a huge part of his family's traditions, get-togethers, and is intertwined with social events such as b-days, family dinners, etc. Apprehensive and fearful of judgment and rejection if he doesn't fully engaged in faith. Shared internal struggles with grasping with this and how it will effect him and relationship with family. Tearful at times. Guilt regarding hiding things from his family. He did not attend Confession yesterday and didn't disclose to his family way. Also didn't exercise this AM. Decompensation notes. Behaviors are similar to prior decompensation when he began to isolation, stopped attending events, and was reluctant to share distress with family. Benefited from group support, encouragement, and feedback. Will continue in IOP to maintain safety, increase healthy coping, and to stabilize mood to return to work/school. Narrative Note: []
--- NOTE | 2022-07-31 10:10 | BH.SGPN.GN ---
Behaviors/Verbalizations/Mental Status: []Client alert and oriented, casually dressed and groomed. Eye contact good. Motor activity appropriate. Speech within normal limits. Affect congruent, mood euthymic. Thoughts linear, logical, no signs of hallucinations or delusions. Client Response/Progress/Benefit: []Client was an active participant in group discussions and activity. Attentive during psychoeducation. Client along with peers were able to identify several negatives on the picture given to the group. Client and peers also identified positives in the picture and made the connection that finding positives is much more difficult. Interactive discussion on the definition of perspective, how perspective is formed, and why perspective is important in treatment. Client along with peers also identified that perspective can either motivate and encourage treatment or be a barrier to receiving help. Client shared he is trying to adopt a more hopeful/positive perspective currently. Shared this would aid in improving his confidence and willingness to follow through with goals for himself for a future career. Recognizes when his perspective is negative he tends to shut down and isolate from supports. Will continue in IOP to stabilize moods, increase consistent use of healthy coping, and prevent decompensation. Narrative Note: []
--- NOTE | 2022-07-31 11:10 | BH.SGPN.GN ---
Behaviors/Verbalizations/Mental Status: []Pt alert and oriented, casually dressed and groomed. Eye contact good. Motor activity appropriate. Speech within normal limits. Affect congruent, mood distracted. Thoughts linear, logical, no signs of hallucinations or delusions. Client Response/Progress/Benefit: []Pt was attentive and contributed to small group discussion. Pt completed strengths exploration worksheet. Pt able to acknowledge how these strengths are helping pt and can continue to help pt in mental health journey. Reflected on how pt?s love of learning, open-mindedness, and intelligence have helped pt in the past and continue to help pt with mental health. Pt worked with group to identify strategies that can help increase utilization of personal strengths and how to challenge one?s perspective in general. Benefited from identifying personal strengths and strategies for enhancing use of identified strengths. Pt to continue IOP tx to reduce ruminations, improve communication with supports, and reduce negative thinking patterns. Narrative Note: []
--- NOTE | 2022-08-04 09:05 | BH.SGPN.GN ---
Behaviors/Verbalizations/Mental Status: []Eye contact good, casually dressed, motor activity appropriate, speech normal rate and tone, mood euthymic and anxious, congruent affect, thoughts linear and intact, no evidence of delusions or hallucinations. Reviewed pt's symptom tracker, pt suicidal ideation reported within baseline, denies plan, or intent as of this date. Future oriented. Client Response/Progress/Benefit: [] Pt responded well to session, attentive and willing to process with group. Pt did well to identify wins, which included being active over the weekend and attending an alumni basketball game. Reported feeling accomplished and proud of himself as a result. Additional win identified as going to visit his best friend in [place] as well. Noted feeling more relaxed and less pressured as a result. Identified current stressor as ongoing issues coping with having feelings for someone who is already in a relationship. Appeared to benefit from supportive feedback and encouragement provided by the group. Progress noted in continued reports of improved mood and ongoing skill application. Recommended continued IOP tx to promote consistent use of healthy skills, encourage continued values exploration, as well as prevent decompensation. Narrative Note: []
--- NOTE | 2022-08-04 10:10 | BH.SGPN.GN ---
Behaviors/Verbalizations/Mental Status: [] Eye contact is good. Motor activity is appropriate. Appearance is casual. Speech is Appropriate. Mood is depressed. Affect is congruent. Thoughts are linear and logical. No evidence of psychosis. Client Response/Progress/Benefit: [] Pt participated at times during group discussions. Attentive during psychoeducation and participated in experiential activity. Participated during interactive discussion on how emotions can negatively impact how we communicate. Pt along with peers identified that intense emotions can impact one's ability to focus, cause one to shut down, lead to word vomit, cause cognitive distortions (Catastrophizing, Minimizing, mind-reading), and can impact one's ability to comprehend. Pt participated during interactive discussion on the importance of communicating one's emotions to others which can prevent blow-ups, help one get their needs met, help others better understand our emotions/concerns/stressors, can build trust with others, and can help us advocate for ourselves. Able to identify and elaborate on the connections between experiential activity and group topic. Benefited from increased awareness of how emotions can impact communication. Will continue in IOP to prevent decompensation,maintain safety, and increase healthy coping skills. Narrative Note: []
--- NOTE | 2022-08-04 11:15 | BH.SGPN.GN ---
Behaviors/Verbalizations/Mental Status: []Pt alert and oriented, neatly dressed and groomed. Eye contact good. Motor activity appropriate. Speech within normal limits. Affect congruent, mood euthymic. Thoughts linear, logical, no signs of hallucinations or delusions. Client Response/Progress/Benefit: []Pt engaged in session AEB pt listening attentively to peers and providing input. Attentive during psychoeducation on 4 zones of regulation. Pt able to identify feelings and behaviors for each zone.? Pt identified coping skills one can use to support self in each zone. Pt stated belief that he was in the blue zone when he came to IOP, but now pt feels he is in the green zone. Pt reports going for a run will help pt stay in the green zone today. Benefited from increased education on zones of regulation or stages of alertness for emotions and healthy coping skills to use for each zone. Pt will continue IOP tx to promote mood stability, combat distortions, and increase emotional regulation skills. Narrative Note: []
--- NOTE | 2022-08-06 09:05 | BH.SGPN.GN ---
Behaviors/Verbalizations/Mental Status: []Pt alert and oriented, neatly dressed and groomed. Eye contact good. Motor activity appropriate. Speech within normal limits. Affect congruent, mood mellow. Thoughts linear, logical, no signs of hallucinations or delusions. Reviewed pt?s symptom tracker, no risk for suicidal ideation, plan, or intent as of 08/06/22 Client Response/Progress/Benefit: [] Pt responded well to session, attentive and providing feedback. Pt reports feeling removed this morning as pt has been working nonstop and has little time for himself. Pt shared there is little he can do to change his work load for the next few days, but pt did communicate with his family that he needed a break earlier this week. Pt appeared to benefit from communicating this and was able to rest. Pt has gotten back into running which is a coping skills pt used to enjoy and he has goals to run a mile a day. Pt will continue IOP tx to improve self-compassion, increase self-care, and reduce negative thinking. Narrative Note: []
--- NOTE | 2022-08-06 10:10 | BH.SGPN.GN ---
Behaviors/Verbalizations/Mental Status: [] Eye contact is good. Motor activity is appropriate. Appearance is casual. Speech is Appropriate. Mood is euthymic. Affect is full. Thoughts are linear and logical. No evidence of psychosis. Client Response/Progress/Benefit: [] Pt participated at times during group discussions. Attentive during psychoeducation. Participated along with peers on working to define locus of control and provide examples of internal and external locus of control. Active and engaged during experiential activity and was able to see correlations between activity and emotions/perspectives associated with internal vs external locus of control. Pt shared that his locus of control is typically external b/c I feel like I am just coasting and what happens to me isn't up to me . Benefited from increased insight and awareness of internal vs external locus of control and how this could impact mental health. Will continue in IOP to maintain safety, increase healthy coping, and to improve functioning to return to school. Narrative Note: []
--- NOTE | 2022-08-06 15:00 | BH.SGPN.GN ---
Behaviors/Verbalizations/Mental Status: []Client alert and oriented, casually dressed and groomed. Eye contact good. Motor activity appropriate. Speech within normal limits. Affect congruent, mood anxious. Thoughts linear, logical, no signs of hallucinations or delusions. Client Response/Progress/Benefit: []Client responded well to session, actively engaged during psychoeducation on circles of control including areas in which we have control, some influence, or concern but no control over in daily life. Client completed a worksheet where group members identified what aspects of a current stressor they may have some control or influence over. Client indicated wanting to work on the stressor of not being in a romantic relationship. Shared having influence over whether or not her gets out and meets new people and control over the amount of time spent fixating on feelings of loneliness. Group then worked together on identifying steps to begin using an internal locus of control when addressing current stressors. Client identified plans to remind himself to look for and challenge thought distortions. Client will continue IOP tx to improve consistent skill application and thought challenging, maintain mood stability, and prevent decompensation. Narrative Note: []
--- NOTE | 2022-08-07 10:10 | BH.SGPN.GN ---
Behaviors/Verbalizations/Mental Status: []Client alert and oriented, casually dressed and groomed. Eye contact good. Motor activity appropriate. Speech within normal limits. Affect congruent to topics being discussed, mood euthymic. Thoughts linear, logical, no signs of hallucinations or delusions. Client Response/Progress/Benefit: []Pt engaged in session AEB listening attentively to others and providing insight to group discussion. Pt engaged in activity, able to connect how it can be uncomfortable when things are out of own control. Pt worked with group to identify what can be hard to accept. Group identified things hard to accept include: of a loved one, loss of job, loss of relationship, current situation, boundaries, and past decisions. Pt worked on identifying what personal things are hard to accept for himself. Pt seemed to benefit from increase awareness of importance of acceptance. Pt to continue IOP to challenge distorted thoughts, continue use of healthy coping, and prevent decompensation. Narrative Note: []
--- NOTE | 2022-08-07 11:10 | BH.SGPN.GN ---
Behaviors/Verbalizations/Mental Status: []Pt alert and oriented, neatly dressed and groomed. Eye contact good. Motor activity appropriate. Speech within normal limits. Affect congruent, mood euthymic. Thoughts linear, logical, no signs of hallucinations or delusions. Client Response/Progress/Benefit: []Pt responded well to session, engaged and providing examples. Pt engaged as group continued discussion on acceptance and how lack of acceptance can impact mental health. Pt and peers identified what makes acceptance challenging and pt completed a self-reflection exercise on what is hard to accept in pt's life. Pt worked in a small group to process how not accepting can cause more harm. Group identified strategies to increase acceptance and pt selected communicating honestly with supports to help pt increase acceptance. Pt appeared to benefit from gaining insight and strategies to increase acceptance. Pt will continue IOP tx to promote mood stability, increase self-advocacy, and reduce negative thinking patterns. Narrative Note: []
--- NOTE | 2022-08-07 14:35 | BH.MDN ---
Multi-Disciplinary Note - Note 45-min Individual Time Started:: 09:00 Date: 08/07/22 Purpose of session/treatment goals addressed:: Purpose of session was to address goals 1 and 2 from MTP. Eye Contact:: Fair Motor Activity:: Appropriate Appearance:: Casual Speech:: Appropriate Mood:: Anxious Affect:: Congruent Thoughts:: Linear, Logical, No evidence of hallucinations/delusions noted Staff Interventions:: thought challenging, psychoeducation on: - self-care, CBT techniques, mindfulness skills, strengths perspective, goal setting, taught coping skills - boundary setting Client Response:: Client reported he did go to [place] on Thursday to spend time with his best friend. Client stated he enjoyed his time with his friend, which he reported was a healthy distraction. Client stated he did not talk with his friend about how his friend managed to tell his family about not being worship. Client reported since talking with therapist briefly about his anxiety about telling his family about not being worship he has been doing better. client stated it helps that his sister is aware of his feelings about buddhist so he can at least talk to someone. client reported he is worried his parents will ask him if he went to confession today. Client stated he plans to talk to his sister about what to say for additional support and perspective. client reported he still isn't ready to tell his parents that he is not worship because he doesn't think he can handle being pressured to feel a certain way. Client agreed if he is feeling like he is ruminating negatively about this he will call his best friend for support. Client reported he has been reflecting on the group topic of locus of control. client stated he realizes he has had a external locus of control all of his life. client stated he feels like he has just followed suit with whatever his siblings have done and whatever his parents want of him. client reported in certain circumstances this has worked about because he does like some of the things he picked up from following in his siblings footsteps. client reported he does think he would be graduated from college already if his dad didn't tell him to go to school for engineering. Client stated he wanted to just go to school for aeronautics, but felt pressured to do aeronautics engineering. Client stated he feels like he just waits for the situation to change instead of doing something to make a change. client stated he would like to work on being more independent in his decision making. Client reported earlier this week he has noticed feeling burnout. 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 client stated initally it was helpful to have structure and something to do for distraction, but is starting to realize he doesn't have any time for himself or time to work on his skills from IOP. 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 Client agreed it would be helpful if he set a boundary with his dad that he needs to be done on the farm by 5pm every day. Client stated this would give him more time to study and to use his skills. Client receptive to psychoeducation about self-care. Client agreeable to talk with his family in the next couple of days about his boundary and to start focusing on engaging in self-care activities on a more consistent basis. Risks/Concerns:: Client stated he hasn't had suicidal thoughts since last . client reported the suicidal thought he has last week was a passive thought of . Client denies current suicidal thoughts, intention or plan. feels able to maintain safety. Progress Toward Goals/Plan:: Client report slight regression in progress with increased anxiety and increased depressive symptoms. client recognized he hasn't had much time to spend on using his skills or engaging in connecting with his friends. Client grappling with talking to his family about his change in worship views. Client recognizes he needs to have at least a few people he can talk to about his emotions towards this situation. Client to continue IOP to increase consistent use of healthy coping skills, challenge negative thoughts, and prevent decompensation. Time Stopped:: 09:40
--- NOTE | 2022-08-11 09:05 | BH.SGPN.GN ---
Behaviors/Verbalizations/Mental Status: [] Eye contact is good. Motor activity is appropriate. Appearance is casual. Speech is Appropriate. Mood is anxious. Affect is congruent. Thoughts are linear and logical. No evidence of psychosis. Reviewed daily check in sheet and no reports of suicidal ideations or intent. Client Response/Progress/Benefit: [] Pt participated at times during the group discussion. Attentive. Mental health wins were setting boundaries with parents. He shared with the group current expectations from his family and how this was impacting his mental health, self-care, and social activities. 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 He did talk with his parents and overall he believes that they responded well. Group discussion on importance of assertive communication and boundary setting in all relationships as well as the negative mental health impacts of people-pleasing. Benefited from group support, encouragement, and feedback. Will continue in IOP to maintain safety, prevent decompensation, and improve functioning to return to work/school. Narrative Note: []
--- NOTE | 2022-08-11 10:14 | BH.SGPN.GN ---
Behaviors/Verbalizations/Mental Status: []Pt alert and oriented, neatly dressed and groomed. Eye contact good. Motor activity appropriate. Speech within normal limits. Affect congruent, mood euthymic. Thoughts linear, logical, no signs of hallucinations or delusions. Client Response/Progress/Benefit: []Pt was an active participant AEB contributing to discussion, taking notes, and engaging in group activity. Connected with the topic of pitfalls and listened to group discussion on barriers that prevent from choosing a healthier path to mental wellness. Group worked together to identify examples of personal pitfalls and pt identified theirs as feeding into negative thinking and having difficulty communicating with his family what he wants.? Pt benefited from group as Pt learned to better identify potential barriers to improving mental health symptoms. Pt will continue IOP tx to further combat distortions, increase self-esteem, and further improve communication with supports. Narrative Note: []
--- NOTE | 2022-08-11 11:14 | BH.SGPN.GN ---
Behaviors/Verbalizations/Mental Status: []Client alert and oriented, casually dressed and groomed. Eye contact good. Motor activity appropriate. Speech within normal limits. Affect congruent, mood euthymic. Thoughts linear, logical, no signs of hallucinations or delusions. Client Response/Progress/Benefit: []Client receptive of session, engaged throughout AEB actively listening and contributing to discussion, as well as taking notes. Client participated in the experiential activity and did well to communicate ideas with peers and manage emotions. Client and group processed how the emotions and perspective of the group impacted the activity. Group worked together to identify different coping skills to help manage pitfalls. Client identified pitfalls they struggle with and shared wanting to work on pitfall of difficulties communicating his needs/wants with friends and family by using strategies of opposite action to just ?get the conversation started?, setting specific times to communicate, and practice. Benefited from identifying personal pitfalls and strategies to overcome these pitfalls. Will continue IOP tx to promote continued progress, prevent decompensation and improve thought challenging. Narrative Note: []
--- NOTE | 2022-08-12 09:05 | BH.SGPN.GN ---
Behaviors/Verbalizations/Mental Status: []Eye contact good, casually dressed, motor activity appropriate, speech normal rate and tone, mood euthymic, congruent affect, thoughts linear and intact, no evidence of delusions or hallucinations. Reviewed pt's symptom tracker, pt suicidal ideation within established baseline, denies any plan or intent. Future oriented. Client Response/Progress/Benefit: []Pt responded well to session, attentive and willing to process with group. Pt reports feeling relaxed this morning. Identified current mental health wins as spending time with his family yesterday and making plans to go out with friends this weekend. Noted that continuing to prioritize socialization and connecting with supports is [place]ana for maintaining mental health stability. Identified a current stressor as his grandmother?s health and shared trying to be present and enjoy the time he is spending with her as much as he possibly can. Appeared to benefit from group support and encouragement. Continues to display progress in values exploration and self-advocacy. Recommended continued IOP tx to continue to improve consistent use of healthy skills, promote mood stability, as well as prevent decompensation. Narrative Note: []
--- NOTE | 2022-08-12 10:15 | BH.SGPN.GN ---
Behaviors/Verbalizations/Mental Status: []Pt alert and oriented, neatly dressed and groomed. Eye contact good. Motor activity appropriate. Speech within normal limits. Affect congruent, mood euthymic. Thoughts linear, logical, no signs of hallucinations or delusions. Client Response/Progress/Benefit: []Pt responded well to session AEB contributing to discussion, taking notes, and listening attentively to others. Group discussed the benefits of managed anger and anger as a secondary emotion. Pt shared perspective on personal benefits of anger as motivated for change. Pt completed worksheet on anger triggers and personal warning signs of anger. Pt identified their biggest triggers as traffic, losing, and when his patience is tested. Appeared to benefit from increased knowledge of the anger cycle as well as personal triggers. Will continue IOP tx to improve self-confidence, reduce rumination and negative thinking, and increase mood stability. Narrative Note: []
--- NOTE | 2022-08-12 11:15 | BH.SGPN.GN ---
Behaviors/Verbalizations/Mental Status: []Client alert and oriented, casually dressed and groomed. Eye contact good. Motor activity appropriate. Speech within normal limits. Affect congruent, mood euthymic. Thoughts linear, logical, no signs of hallucinations or delusions. Client Response/Progress/Benefit: []Pt was engaged throughout AEB contributing to group discussion and self-reflection. Group finished processing cues to anger worksheet. Pt contributed as group brainstormed healthy coping skills for better managing anger which included: music, walking/exercise, changing the environment, communicating with supports, and journaling. Pt reported he would like to work on skill of progressive muscle relaxation and working out to help manage anger responses. Pt appeared to benefit from identifying different techniques to manage anger as well as gaining awareness of potential consequences of unmanaged anger. Will continue IOP tx to continue use of skills, challenge distortions, and prevent decompensation.
--- NOTE | 2022-08-13 09:03 | BH.SGPN.GN ---
Behaviors/Verbalizations/Mental Status: []Eye contact good, casually dressed, motor activity appropriate, speech normal rate and tone, mood euthymic, congruent affect, thoughts linear and intact, no evidence of delusions or hallucinations. Reviewed pt's symptom tracker, suicidal ideation within baseline, pt denies plan, or intent as of this date. Future oriented. Client Response/Progress/Benefit: []Pt responded well to session, attentive and willing to process with group. client reported mental health positive as taking time to set up his video game system and has plans to play a new game with his friend this week. Pt reported additional mental health positive as identifying his best friends wedding gift. Pt stated having the gift figured out is one less thing he has to worry about. Pt reported current stressor is worrying about having to travel alone on a airplane for the first time in his life. Pt stated he managed this anxiety by starting to research traveling ideas for his trip. Appeared to benefit from group?discussion and supportive environment. Recommended continued IOP tx to continue to use healthy coping skills, challenge negative thinking, and prevent decompensation.
--- NOTE | 2022-08-13 10:10 | BH.SGPN.GN ---
Behaviors/Verbalizations/Mental Status: []Eye contact is good. Motor activity is appropriate. Appearance is casual. Speech is Appropriate. Mood is anxious and euthymic. Affect is congruent. Thoughts are linear and logical. No evidence of psychosis. Client Response/Progress/Benefit: []Pt was an active participant in group discussions and experiential activity. Attentive during psychoeducation on resilience. Participated in interactive discussion with peers on the definition of resilience and where it comes from. Shared that resilience allows us to continue to move forward and cope in healthier ways when faced with hardships or setbacks. Group identified that resiliency can be impacted by; past experiences, learned behaviors, and mental health state. Group also worked together to identify the benefits of being resilient and how it is related to mental health. Able to relate experiential activity of group juggle to topics of resilience. Worked well with peers in small group in which they identified factors that contribute to resilience. Benefited from increased awareness of resilience and the factors that contribute to building resilience. Will continue in IOP to promote gains, increase healthy thought patterns and self-advocacy, as well as prevent decompensation. Narrative Note: []
--- NOTE | 2022-08-13 11:10 | BH.SGPN.GN ---
Behaviors/Verbalizations/Mental Status: []Pt alert and oriented, neatly dressed and groomed. Eye contact good. Motor activity appropriate. Speech within normal limits. Affect congruent, mood euthymic. Thoughts linear, logical, no signs of hallucinations or delusions Client Response/Progress/Benefit: []Pt responded well to session AEB completing the resilience worksheet provided. Reports belief they already use resilience traits of??making connections, accepting that change is a part of living, and nurturing a positive view of self.? Pt shared these traits will help pt overcome current stressors. Pt stated they would like to continue to develop resilience trait of ?taking care of self? which pt wants to do by? verbalizing boundaries. Pt seemed to benefit from discussing strategies for improving personal resilience and identifying resilience traits pt already possesses. Progress noted as pt reports utilizing healthy coping skills outside of IOP tx. Will continue IOP tx to further improve mood stability, increase self-care practices, and promote gains. ? Narrative Note: []
--- NOTE | 2022-08-18 09:05 | BH.SGPN.GN ---
Behaviors/Verbalizations/Mental Status: []Pt alert and oriented, neatly dressed and groomed. Eye contact good. Motor activity appropriate. Speech within normal limits. Affect congruent, mood euthymic. Thoughts linear, logical, no signs of hallucinations or delusions. Reviewed pt?s symptom tracker, no risk for suicidal ideation, plan, or intent as of 08/18/22 Client Response/Progress/Benefit: []Pt responded well to session, attentive and receptive to feedback. Pt reports feeling relieved this morning after talking to some of his family about his views on adventist. Pt stated he spoke with his siblings and cousins and they were loving and understanding. Pt reported he also got to stargaze over the weekend which helped pt feel grounded. Pt is anxious to have this conversation with his parents, but pt is reminding himself that things will work out. Pt appeared to benefit from emotional support and validation from peers. Pt will continue IOP tx to promote mood stability and reinforce healthy coping skills. Narrative Note: []
--- NOTE | 2022-08-18 10:05 | BH.SGPN.GN ---
Behaviors/Verbalizations/Mental Status: [] Client alert and oriented, casually dressed and groomed. Eye contact good. Motor activity appropriate. Speech within normal limits. Affect congruent, mood euthymic. Thoughts linear, logical, no signs of hallucinations or delusions. Client Response/Progress/Benefit: [] Client responded well to session, contributing to discussion some and engaged during the activity. Group identified the benefits of change which included: personal growth, positive perspective, increased confidence and better mental health. Worked with the group to identify barriers to change, which included: uncomfortable emotions such as anxiety, lack of awareness, low energy, support system, and negative thinking. Client also reflected on past negative experiences can keep people from making changes. Client participated along with group in activity where they identified and discussed the emotions related to change. Benefited from increased awareness and understanding of emotions, benefits, and barriers related to change. Will continue IOP tx to continue to combat distortions that reinforce low self-esteem, anxiety, and depression. Narrative Note: []
--- NOTE | 2022-08-18 11:13 | BH.SGPN.GN ---
a Behaviors/Verbalizations/Mental Status: [] Client alert and oriented, casually dressed and groomed. Eye contact good. Motor activity appropriate. Speech within normal limits. Affect congruent, mood euthymic. Thoughts linear, logical, no signs of hallucinations or delusions. Client Response/Progress/Benefit: [] Client responded well to session, attentive AEB participating in activity and actively engaging in group discussion. Group processed activity to relate the strategies used to overcome barriers in the activity to managing change in own life. Discussed and set SMART goal in group as it relates to change group members are wanting to make. Client identified change he would like to stop keeping secrets and have better communication. Indicated he is in the action stage. Client stated his goal is to talk with family members fore each family session. Appeared to benefit from identifying a small goal to work towards. Client will continue IOP tx to increase overall functioning, gain healthy coping skills, and increase self-confidence. Narrative Note: []
--- NOTE | 2022-08-20 09:03 | BH.SGPN.GN ---
Behaviors/Verbalizations/Mental Status: []Pt alert and oriented, neatly dressed and groomed. Eye contact good. Motor activity appropriate. Speech within normal limits. Affect congruent, mood euthymic. Thoughts linear, logical, no signs of hallucinations or delusions. Reviewed pt?s symptom tracker, no risk for suicidal ideation, plan, or intent as of 08/20/22 Client Response/Progress/Benefit: []Pt responded well to session, attentive and engaged. Pt reports feeling relaxed this morning despite being worried about this weekend. Pt shared he has been using healthy coping skills frequently and pt is experiencing the benefits. Pt also was vulnerable with his extended family and siblings about his views on yoel which has led to much relief. Pt's stressor today is that he still has to have this conversation with his parents and he is worried about how this will go. Pt received a lot of group support and ideas on how to communicate and cope. Pt will continue IOP tx to promote gains, reduce negative thinking patterns, and further improve self-compassion. Narrative Note: []
--- NOTE | 2022-08-20 10:05 | BH.SGPN.GN ---
Behaviors/Verbalizations/Mental Status: []Client alert and oriented, casually dressed and groomed. Eye contact good. Motor activity appropriate. Speech normal, quiet. Affect congruent, mood euthymic. Thoughts linear, logical, no signs of hallucinations or delusions. Client Response/Progress/Benefit: []Client's receptive of session, though struggled to remain an actively an engaged participant, appearing distracted by own thoughts. Client was able to re-engage with encouragement AEB client listening and taking notes throughout, as well as participated in small group discussion. Attentive during psychoeducation on communication styles. Assisted group with identifying barriers of effective communication which included: assuming, shutting down, dominating the conversation, and using text to communicate. Benefited from increased awareness of different communication barriers, styles, and the importance of communicating effectively to improve mental wellness. Will continue IOP tx to continue to improve overall functioning, promote mood stability, and prevent decompensation. Narrative Note: []
--- NOTE | 2022-08-20 11:50 | PCM.BH.PN_ITS ---
Progress Note Progress Note: History of Present Illness/Interim History: The patient is a 22-year-old single male who is seen in follow-up at the [facility] behavioral health IOP program where he is being treated for depression and anxiety. I last saw the patient over a month ago. He feels that he has made significant improvement it while doing the IOP. He has been working [place] the [place] and he also has been exercising every day with weights and has begun jogging at least a mile a day at an 8 minute per mile pace which she feels has also improved his mood. He used to run a lot in high school and felt it helped his mood stability at that time. His mood is much less depressed now than when he started the program. He denies hopelessness, worthlessness or guilt. He has learned to set better boundaries for himself with his sources of primary support. He denies any panic attacks. He denies passive thoughts of , suicidal ideation, homicidal ideation, hallucinations or delusions. 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 Current Psychiatric Medications: [] None as the patient does not wish to take psychiatric medications. Mental Status Examination: [] The patient is a 22-year-old male who appears normal for stated age and is casually dressed and groomed with good hygiene. He is ambulatory with a normal gait and has no psychomotor agitation or retardation. He is cooperative and pleasant during the interview. Eye contact is good. Speech is normal rate and rhythm and fluent with no pressure. Mood is minimally depressed to euthymic. Affect is full and normal. Thought process is goal-directed and organized. Thought content: There is no evidence of passive thoughts of , suicidal ideation, homicidal ideation, plan for suicide, hallucinations or delusions. He is hopeful for the future. Reality testing is intact. Impulsivity is low. Judgment is good. Insight is good. Diagnoses: [] 1. Adjustment disorder with mixed anxiety and depressed mood (F43.23) 2. Primary support and school issues Plan: [] The patient will continue the IOP program at [facility] as the structure, support, education and group therapy will hopefully prevent worsening of the patient's symptoms. He felt safe during the interview and if it anytime he does not feel safe he will let us know or go to the emergency room. He is encouraged to continue exercising and using the skills he is learning in the IOP program. He will follow-up with his outpatient providers and I will see the patient in follow-up while he is in the IOP program.
--- NOTE | 2022-08-21 09:02 | BH.SGPN.GN ---
Behaviors/Verbalizations/Mental Status: []Eye contact is good. Motor activity is appropriate. Appearance is casual. Speech is Appropriate. Mood is euthymic, slightly anxious. Affect is full. Thoughts are linear and logical. No evidence of psychosis. Reviewed daily check in sheet and no reports of suicidal ideations or intent. Client Response/Progress/Benefit: []Client responded well to session AEB listening attentively to others and sharing thoughts and feelings. 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 Client stated he followed through with one of his goals of calling to schedule appointment for outpatient counseling. Client reported current stressor is feeling anxious about his talk with his parents tomorrow because he is afraid they will be upset with themselves once he shares he is not zoroastrian. Client stated it was helpful to tell most of his family last week so he feels more prepared to talk with his parents tomorrow. Seemed to benefit from support from peers. Client to continue IOP to continue use of healthy coping, challenge distortions, and prevent decompensation. Narrative Note: []
--- NOTE | 2022-08-21 11:15 | BH.SGPN.GN ---
Behaviors/Verbalizations/Mental Status: []Pt alert and oriented, casually dressed and groomed. Eye contact good. Motor activity appropriate. Speech within normal limits. Affect congruent, mood euthymic. Thoughts linear, logical, no signs of hallucinations or delusions. Client Response/Progress/Benefit: []Pt was an active participant in group discussion AEB providing contributions throughout group and listening attentively to others. Attentive during psychoeducation on mindfulness and ways to utilize mindfulness techniques to improve anxiety management. The group practiced guided meditation during session. Engaged and attentive during group brainstorm of healthy anxiety reduction skills. Appeared to benefit from practicing in the moment coping skills and increasing repertoire of anxiety management skills. Pt selected wanting to work on using skills of listening to music and spending time with pets more consistently. Pt will continue IOP tx to promote continued use of healthy coping skills, further improve communication with supports, and prevent decompensation. Narrative Note: []
== END 2022-08-22 23:59 ==
LOC: BHIOP 06:49
PROVIDERS: Referring Provider Psychiatry & Neurology Psychiatry; Visit Provider Psychiatry & Neurology Psychiatry
DX: F43.23 Adjustment disorder with mixed anxiety and depressed mood (principal)
CPT/HCPCS: S9480; 90832; 90834; 90853

== ENCOUNTER 2022-08-25 08:15 | Outpatient (RCR) | payer BC, SELFPAY ==
[2022-08-23 02:04] VITALS: BP 137/74; PULSE 68
--- NOTE | 2022-08-25 09:00 | BH.SGPN.GN ---
Behaviors/Verbalizations/Mental Status: [] Eye contact good. Motor activity appropriate. Speech within normal limits. Affect congruent, mood anxious and sad. Thoughts linear, logical, no signs of hallucinations or delusions. Reviewed client?s symptom tracker, no risk for suicidal ideation, plan, or intent. Client Response/Progress/Benefit: [] Client responded well to session, attentive and listening to fellow participants as they processed with the group. Client reported mental health positive as having difficult conversation with his parents over the weekend. Client stated his mom did not take the conversation well, but he is still glad he chose to have the difficult conversation. Client reported additional mental health positives as working out and going to his cousins for a distraction. Client stated current stressor is his parents want him to attend [employer] and he doesn't know how to tell them he will not be going. Seemed to benefit from support from peers. Recommended continued IOP tx to continue use of healthy coping, challenge negative thoughts, and prevnet decompensation.
--- NOTE | 2022-08-25 11:00 | BH.SGPN.GN ---
Behaviors/Verbalizations/Mental Status: [] Eye contact is good. Motor activity is appropriate. Appearance is casual. Speech is Appropriate. Mood is euthymic. Affect is full. Thoughts are linear and logical. No evidence of psychosis. Client Response/Progress/Benefit: [] Pt was an active participant in group discussions and experiential activity. Attentive during psychoeducation on the 4 A's (Avoid, adapt, alter, accept) of coping with stress as well as strategies to identify stressors in which one has no control, little control, or a great deal of control over. Shared that he would benefit most from working on accept in regards to the 4 A's of coping with stress. Was able to identify the connection between the experimental activity and utilization of stress management skills. Benefited from increased awareness of stress management strategies. Will continue in IOP to maintain safety, prevent decompensation , and improve functioning. Narrative Note: []
--- NOTE | 2022-08-25 14:15 | BH.MDN_ITS ---
Multi-Disciplinary Note - Note 30-min Individual Time Started:: 10:05 Date: 08/25/22 Purpose of session/treatment goals addressed:: Purpose of session was to address goals 1 and 2 from MTP. Eye Contact:: Good Motor Activity:: Appropriate Appearance:: Casual Speech:: Appropriate Mood:: Anxious, Other - sad Affect:: Congruent Thoughts:: Linear, Logical, No evidence of hallucinations/delusions noted Staff Interventions:: thought challenging, CBT techniques, strengths perspective, other - processed recent talk with parents Client Response:: Client shared he had discussion with his parents on Thursday about him not believing in God. Client reported his dad took the news better than his mom did. Client stated his mom was very upset which has negatively impacted client's mood over the weekend. Client stated he feels sad that he feels responsible for how his mom is feeling. Client reported he knows his mom is having a hard time because she feels like she needs to raise him through [employer] and now she is having a hard time with coming to terms that he does not believe. Client stated initially he was upset and had some regrets about opening up to his parents about his beliefs about God but after a couple days he realized it was necessary for him to does not like his to hide part of him anymore. Client shared he believes he has been decision that he will not go to [facility] despite his family wanting him to go because he knows it will be healthy for him. Client stated he has been struggling with some feelings of guilt but is more confident in his decision and is trying to challenge that he does not have to feel guilty for the way he feels. Seem to benefit from processing the conversation with his parents. Worked with therapist to identify things that his family could do to be helpful and what might not be helpful. Client stated 1 thing that is not helpful is that his mom continues to question each belief he has which comes off his and interrogation. Client stated he will continue to think about what they can do to be helpful and what is not helpful that might have to be brought up during the family session on Thursday. Client reported he plans to spend time with cousins over the next week, workout, and talk to his best friend that lives in [place] for support. Client states he does feel ready for discharge on Thursday and is agreeable to start working on provided maintenance plan. Risks/Concerns:: Denies suicidal ideation, plan or intention to date. future oriented. Progress Toward Goals/Plan:: Progress noted with client being able to manage difficult emotions this weekend by spending time with supports and engaging in self-care. Client continues to report decrease in depressed and anxious symptoms. Plan is for client to discharge from [facility] this Thursday. Time Stopped:: 10:30
--- NOTE | 2022-08-27 09:00 | BH.SGPN.GN ---
Behaviors/Verbalizations/Mental Status: []Eye contact good, casually dressed, motor activity appropriate, speech normal rate and tone, mood euthymic, congruent affect, thoughts linear and intact, no evidence of delusions or hallucinations. Reviewed pt's symptom tracker, pt suicidal ideation within established baseline, denies any plan or intent. Future oriented. Client Response/Progress/Benefit: []Pt responded well to session, attentive and willing to process with group. Identified current mental health wins as continuing to make progress in advocating for his mental health needs and establishing boundaries with his supports. Shared this has been both a positive and a stressor as he struggles with guilt. Shared feeling as though he has disappointed and/or hurt his mother as she does not understand some of the boundaries pt has begun implementing. Able to identify several skills for navigating this stressor and the importance of consistently vocalizing his boundaries. Pt appeared to benefit from group support and encouragement. Continues to display progress in use of thought challenging and communication with supports. Recommended continued IOP tx to continue to improve self-advocacy, promote mood stability, as well as prevent decompensation. Narrative Note: []
--- NOTE | 2022-08-27 10:10 | BH.SGPN.GN ---
Behaviors/Verbalizations/Mental Status: [] Eye contact is good. Motor activity is appropriate. Appearance is casual. Speech is Appropriate. Mood is euthymic. Affect is full. Thoughts are linear and logical. No evidence of psychosis. Client Response/Progress/Benefit: [] Pt was an active participant in group discussion. Attentive during psychoeducation on the CBT [place] (Thoughts, Behaviors, Emotions). Engaged in small group session in which members identified common thoughts, emotions, and actions associated with an event associated with fear of rejection. Completed worksheet in which pt identified a thought that is keeping him stuck or is in obstacle to increased mental wellness. The thought that pt identified was I'm all alone. Benefited from increased awareness of the basis of CBT therapy as well as thoughts are impacting pt' progress. Will continue in IOP to maintain safety, prevent decompensation, and to increase healthy coping skills. Narrative Note: []
--- NOTE | 2022-08-27 11:10 | BH.SGPN.GN ---
Behaviors/Verbalizations/Mental Status: []Pt alert and oriented, neatly dressed and groomed. Eye contact good. Motor activity appropriate. Speech within normal limits. Affect congruent, mood euthymic. Thoughts linear, logical, no signs of hallucinations or delusions. Client Response/Progress/Benefit: []Pt responded well to session, contributing to discussion when prompted, and attentive throughout discussion. Pt identified a negative thought that has kept them stuck. Pt's thought was I?m alone.? Pt reported when they think this way, pt shuts down, isolates, and does not communicate with supports. Pt worked to reframe the thought by finding more rational, realistic ways to look at the thoughts and then processed within group setting. Pt reframed the thought to ?I have supports who care and can help me.? Pt appeared to benefit from practicing challenging negative thinking. Pt will continue IOP tx to promote mood stability, further increase application of healthy coping skills, and improve self-confidence. ? Narrative Note: []
--- NOTE | 2022-08-29 09:05 | BH.SGPN.GN ---
Behaviors/Verbalizations/Mental Status: [] Eye contact is good. Motor activity is appropriate. Appearance is casual. Speech is Appropriate. Mood is anxious. Affect is congruent. Thoughts are linear and logical. No evidence of psychosis. Reviewed daily check in sheet and no reports of suicidal ideations or intent. Client Response/Progress/Benefit: [] Pt participated at times during the group discussion. Attentive. Shared with the group that today is his last day in [facility]. Successfully discharging. Mental health wins include met with new outpatient therapist. Shared that initial meeting went well and feels more comfortable with his current aftercare plan. Shared his progress in [facility] and stated that he learned the most from the groups on Acceptance and communication. Insight that he struggles with communicating openly and asking for help which were primary reasons for his decompensation. He reports feeling stressed today as he has a family meeting with his siblings and parents this afternoon with program counselor. Briefly shared his goals for the family meeting. Benefited from group support, encouragement, and feedback. Will be discharged from [facility] today. Narrative Note: []
--- NOTE | 2022-08-29 10:15 | BH.SGPN.GN ---
Behaviors/Verbalizations/Mental Status: []Pt alert and oriented, neatly dressed and groomed. Eye contact good. Motor activity appropriate. Speech within normal limits. Affect congruent, mood content, euthymic. Thoughts linear, logical, no signs of hallucinations or delusions. Client Response/Progress/Benefit: []Pt was an engaged participant AEB providing input, listening to others, and taking notes. Participated in interactive group discussion on internal and external barriers to mental health progress. Pt described current reality using a valley metaphor. Pt shared feeling like ?I?m almost out of the dark [place] and have the support of friends and family, as well as my own internal coping skills.? Reported desired reality is being able to maintain the progress he has made and further improve communication with supports. Pt shared personal barriers to desired realty include: negative self-talk, lack of communication, and difficulties being assertive. Benefited from increased awareness of current barriers to progress as well as current/desired realities. Pt to d/c from [facility] today and continue with outpatient mental health services. Narrative Note: []
--- NOTE | 2022-08-29 11:10 | BH.SGPN.GN ---
Behaviors/Verbalizations/Mental Status: []Client alert and oriented, casually dressed and groomed. Eye contact good. Motor activity appropriate. Speech within normal limits. Affect congruent to topics being discussed, mood euthymic. Thoughts linear, logical, no signs of hallucinations or delusions. Client Response/Progress/Benefit: []Client an active participant, encouraging peers and contributed as group brainstormed ideas on how to cope with internal barriers that keep clients stuck from moving towards goals. Able to identify barriers to desired reality. Worked with group to identify strategies to help overcome barriers. Identified personal barriers to desired reality. Client reported wants to work on barrier of lack of communication by writing down what he wants to say first so he feels more confident. Benefited from group by identifying obstacles and solutions to desired reality. client has made significant treatment progress and will discharge from [facility] today.
--- NOTE | 2022-08-29 14:38 | BH.MDN_ITS ---
Multi-Disciplinary Note - Note Family Time Started:: 13:00 Date: 08/29/22 Purpose of session/treatment goals addressed:: Purpose of family session was to identify client's treatment progress, provide psychoeducation about mental health to client's family, and identify what his family can do to be supportive. Eye Contact:: Good Motor Activity:: Appropriate Appearance:: Casual Speech:: Appropriate Mood:: Euthymic, Anxious Affect:: Congruent Thoughts:: Linear, Logical, No evidence of hallucinations/delusions noted Staff Interventions:: psychoeducation on: - depression, CBT techniques, rapport building, discharge planning, strengths perspective, reviewed DSM-5 Client Response:: Client responded well to family session AEB him openly sharing thoughts and feelings. Client's mother, father, brother, and two sisters were in attendance for this family session. Client shared with family treatment progress he has made since starting IOP. Client and therapist noted progress as being able to communicate more effectively, setting boundaries, focused on getting needs met, improved mood, ability to having difficult conversations, and asking for help. Therapist shared with family client's DSM 5 scores at discharge indicate a 83% overall symptom reduction, 86% reduction in depression, 100% reduction in thoughts of hurting self, and a 85% reduction in anxiety. Therapist provided psychoeducation to family about depression, sharing common symptoms experienced. Client shared with family his common depressive symptoms and warning signs that he is starting to struggle. Client's family asked what they can do to be more supportive. Client shared it's helpful when they ask him to socialize and be active. Client stated allowing him have space when it's a problem he can resolve on his own is also helpful. Client agreeable to co mmunicate that he is doing ok and just needs space when he knows it's something he can deal with on his own. Therapist encouraged family to not be afraid to ask directly how he is doing. Client stated he does feel like he can be more honest about how is feeling. With assistance from therapist client addressed his family concern that he shared he is not mu-ism. Client expressed what is helpful and what is not helpful in regards to him having a different belief set then his family. Client's family expressed understanding on how to better help and support client. Risks/Concerns:: Client denies suicidal ideation, plan or intention to date. future oriented. Progress Toward Goals/Plan:: Progress noted AEB DSM 5 scores noted in client response. Client has reported progress with improved communication skills, improved ability to manage mental health symptoms, and improved daily functioning. Plan is for client to discharge from [facility] today. Client is established with outpatient counseling at [facility]. Client had his first individual session with new therapist yesterday. Time Stopped:: 13:55
--- NOTE | 2022-08-29 15:09 | BH.DS ---
Discharge Summary - Demographics Date of Admission:: 07/10/22 Discharge Date: 08/29/22 Presenting Problems at Admission:: The patient is a 22-year-old single male who referred himself to the [facility] behavioral health IOP program for worsening depression since December 2021. The patient states that he may have started becoming mildly depressed during the COVID pandemic. 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 The patient's condition worsens and he stopped going to classes and to work in May secondary to feeling lonely and isolated. He dropped out of flight school now as he was behind but only has 3 classes to complete his training. The patient has had a few panic attacks but the last panic attack was on July 02, 2022. On June 28 the patient bought sleeping pills with the intent to kill himself by ingesting pills and sitting in his garage with car on. Later that night he went out with his friends and realized he did not want to kill himself. Since moving home his depression and anxiety symptoms have improved. Discharge Diagnoses:: Adjustment disorder with mixed anxiety and depressed mood (F43.23) Reason for Discharge:: Pt has made significant treatment progress since starting IOP and no longer meets criteria for [facility] level of care. - Treatment Progress During Treatment & Response: Pt's DSM 5 scores at discharge show a 86% reduction in depression, 86% reduction in anxiety, 100% reduction in suicidal thoughts, and overall 83% reduction in symptoms when compared to intake DSM 5 scores. Pt reports improved ability to manage his emotions, able to challenge perspective, improved boundary setting, and improved communication skills. Pt responded well to program AEB appearing engaged in group sessions, following through with goals, and contributing at times to group discussions. Issues Still to be Addressed:: Client could benefit from continued work on openly sharing thoughts and feelings, asking for help, and challenging distorted thoughts. Discharge Recommendations/Instructions:: Client is established with outpatient counseling at [facility]. Client had his first individual session with new therapist yesterday. Discharge Handout: Complete Discharge Handout with client on aftercare options and continuity of care.
== END 2022-08-29 14:11 | disposition home or self-care (01) ==
LOC: BHIOP 08:15
PROVIDERS: Referring Provider Psychiatry & Neurology Psychiatry; Visit Provider Psychiatry & Neurology Psychiatry
DX: F43.23 Adjustment disorder with mixed anxiety and depressed mood (principal)
CPT/HCPCS: S9480; 90832; 90847; 90853